=== PATIENT | male | born 1975 | race Two or more races ===

== ENCOUNTER 2023-11-21 07:43 | Emergency (ER) | payer BC, OTHER ==
[~2023-11-21] VITALS: Ht 180.3 cm; Wt 93.4 kg
[2023-11-21 07:49] VITALS: BP 127/96; TEMP 98.5; O2SAT 98
== END 2023-11-21 08:31 | disposition home or self-care (01) ==
LOC: ER 07:43
DX: B34.9 Viral infection, unspecified (principal); Z20.822 Contact with and (suspected) exposure to COVID-19

== ENCOUNTER 2025-09-27 12:54 | Emergency (ER) | payer BC, OTHER ==
[~2025-09-27] VITALS: Ht 177.8 cm; Wt 95.3 kg
[2025-09-27 13:06] VITALS: TEMP 98
[2025-09-27 13:34] LABS: PLATELET COUNT (AUTO) 211 K/uL (150-450); RED BLOOD CELL COUNT(AUTO) 5.13 MIL/uL (4.5-6.0); RED CELL DISTRIBUTION WIDTH 13.4 % (11.5-15.0); WHITE BLOOD COUNT (AUTO) 8.1 K/uL (4.3-11.0)
[2025-09-27 13:50] LABS: CALCIUM, SERUM 8.3 mg/dL (8.5-10.1); CREATININE 0.8 mg/dL (0.6-1.3); SODIUM SERUM 142 mmol/L (136-145); UREA NITROGEN, BLOOD 23 mg/dL (7-18)
[2025-09-27 14:04] LABS: NT-PRO BNP 9 pg/mL (0-125)
[2025-09-27] MEDS ORDERED: IBUP-1490 PO (14:14)
[2025-09-27] MEDS ORDERED: ACET325C7 PO (14:14)
[2025-09-27 14:27] VITALS: BP 125/83; O2SAT 97
== END 2025-09-27 14:27 | disposition home or self-care (01) ==
LOC: ER 13:37
DX: R07.89 Other chest pain (principal); R06.02 Shortness of breath
CPT/HCPCS: 36415; 71045-TC; 80048-TC; 83880; 84484-TC; 85025-TC